=== PATIENT | female | born 1980 | race Caucasian/White ===

== ENCOUNTER 2021-06-23 06:03 | Day surgery (SDC) | payer BC ==
[2021-06-23] MEDS ORDERED: Sensorcaine 0.25% 10 ML ONE (06:56)
[2021-06-23] MEDS ORDERED: Lactated Ringers 1,000 ML IV ONE (06:58)
[2021-06-23] MEDS ORDERED: Lactated Ringers 1,000 ML IV SCH (07:00)
[2021-06-23] MEDS ORDERED: Decadron 4 MG INJ ONE (07:09)
[2021-06-23] MEDS ORDERED: SUBLIMAZE 100 MCG/2 ML ONE ×3 (07:57→09:07)
[2021-06-23] MEDS ORDERED: Zemuron 100 MG/10 ML ONE ×2 (07:57→08:24)
[2021-06-23] MEDS ORDERED: Versed 2 MG/2 ML Injection ONE (07:57)
[2021-06-23] MEDS ORDERED: DIPRIVAN 200 MG/20 ML IV ONE (07:57)
[2021-06-23] MEDS ORDERED: VIBRAMYCIN 100 MG*** 100 MG in Dextrose 5%/Water IV Soln. 100ML PLUS BAG 100 ML IV ONE (08:00)
[2021-06-23] MEDS ORDERED: TORAdol 30 mg Injection ONE (08:47)
[2021-06-23] MEDS ORDERED: Zofran 4 MG/2 ML VIAL ONE (08:47)
[2021-06-23] MEDS ORDERED: BRIDION 200MG/2ML IV ONE (08:49)
[2021-06-23] MEDS ORDERED: DEMEROL 50 MG ONE (08:58)
[2021-06-23 10:48] VITALS: O2SAT 99
[2021-06-23 10:51] VITALS: BP 132/67; PULSE 67
[2021-06-23 13:53] LABS: Appearance CLEAR (CLEAR); Bilirubin NEGATIVE (NEGATIVE); Glucose NEGATIVE (NEGATIVE); Ketones NEGATIVE (NEGATIVE); Leukocyte Esterase NEGATIVE (NEGATIVE); Nitrite NEGATIVE (NEGATIVE); Protein,Urine Dip NEGATIVE (Negative); Specific Gravity 1.015 (1.005-1.025); Urobilinogen 0.2 mg/dL (0-1)
[2021-06-23 13:54] LABS: Blood TRACE NON-HEM Ery/ul (0-5)
--- NOTE | 2021-06-24 09:29 | OP ---
SURGERY DATE/TIME: 06/23/2021 0805 PREOPERATIVE DIAGNOSES: 1) Multiparity desiring tubal sterilization. 2) Menorrhagia. POSTOPERATIVE DIAGNOSES: 1) Multiparity desiring tubal sterilization. 2) Menorrhagia. PROCEDURE: Laparoscopic tubal sterilization via Falope ring application, dilatation curettage with endometrial with NovaSure ablation. SURGEON: Amol Hightower D.O. NEEDLE SETTER: Bonita Klein rn neurosurgical. ANESTHESIA: General. ESTIMATED BLOOD LOSS: Minimal. COMPLICATIONS: None. INDICATIONS: The risks, benefits, indications and alternatives of the procedure were reviewed with the patient prior to the procedure. The patient understood the risk of infection, bleeding, bowel injury, bladder injury, ureteral injury, uterine perforation, pelvic infection associated with this surgery and desires to have the surgery as a possible means to alleviate her current medical condition. DESCRIPTION OF PROCEDURE AND FINDINGS: At this point the patient is taken to the operating room, given general sedation, placed in dorsal lithotomy position, prepped and draped in the usual sterile fashion. A weighted speculum is then placed in the patient's vagina and the anterior lip of the cervix is grasped with a single tooth tenaculum. A uterine manipulator was then inserted in through the endocervical canal as a means to manipulate the uterus. At this point attention was then turned to the patient's abdomen where a 5 mm skin incision was made in the umbilical fold. A 5 mm trocar and sleeve were advanced under direct visualization where pneumoperitoneum was obtained with 4 liters of CO2 gas. A survey of the patient's pelvis and abdomen revealed normal anatomy. From this point an additional incision was made approximately 2 cm above the symphysis pubis where an 8 mm incision was made and an 8 mm trocar and sleeve were advanced under direct visualization. From this point the Falope ring applicator was then placed through the 8 mm site and the uterus was elevated with uterine manipulator and the right fallopian tube was identified on the isthmic region and the Falope ring was applied to the isthmic region where a good knuckle of tube was applied with the Falope ring and hemostasis was obtained. The same procedure was performed on the patient's right side where the right isthmic region was identified and the Falope ring applicator was placed on the right isthmic region where a knuckle of tube was applied and Falope ring was placed on its side without complication and hemostasis was obtained. From this point there were no other gross abnormalities within the abdominal or pelvic region. From this point the laparoscope was removed and the incisions were closed with 4-0 Monocryl suture. Attention was then turned to the patient's pelvic region where a weighted speculum was then placed into the vaginal region and the anterior lip of the cervix grasped with a single tooth tenaculum. Endocervical dilators were advanced through the endocervical canal as a means to dilate the cervix and the curette was then placed into the fundus of the uterus and curettage performed in all quadrants of the uterus retrieving a moderate amount of tissue. From this point the NovaSure was then taken and was then placed into the fundal region retracting approximately 1 cm and was engaged for a time of 55 seconds for ablative time. After complete ablative time the instrument was disengaged and removed from the uterine cavity without complication. From this point all instruments were removed from the patient's vaginal region. The patient was then taken out of the dorsal lithotomy position, was taken out of anesthesia and was then taken to the recovery room in stable condition. The instrument measurements for the NovaSure 6 cm in length and 3.1 cm in width. All instruments and laps were accounted for x2. The patient was taken to the recovery room in stable condition.
== END 2021-06-23 10:25 | disposition home or self-care (01) ==
LOC: SDC 06:03
PROVIDERS: ATTEND Obstetrics & Gynecology
DX: Z30.2 Encounter for sterilization (principal); N92.0 Excessive and frequent menstruation with regular cycle
CPT/HCPCS: 58120; 58671; 81001; 84703; 87077; 87086; 87186; J1100; J1885; J2175; J2250; J2405; J2704; J3010